=== PATIENT | female | born 1955 | race African-American/Black ===

== ENCOUNTER → 2016-10-14 | Day surgery (SDC) | payer MEDICAID ==
[~2016-10-14] VITALS: Ht 160 cm; Wt 51.7 kg
[~2016-10-14] MED LIST: ACET1TAB14 PO; BALANCED SALT IRRIG SOLN 15ML ONE; BUPIVACAINE HCL/PF 0.75% (7.5MG/ML) 10ML ONE; CIPROFLOXACIN 0.3% OPHTH SOLN 2.5ML ONE; DEXAMETHASONE 4MG/ML 1ML VIAL ONE; DRISDOL PO; FENTANYL CITRATE/PF 50MCG/ML 2ML VIAL ONE; FERR-63 PO; GENTAMICIN SULF 40MG/ML 2ML VIAL ONE; LACTATED RINGERS 1,000 ML IV SCH; LIDOCAINE HCL 2%/EPINEPHRINE 1:100,000 20 ML VIAL INFIL ONE; LISI-196 PO; MIDAZOLAM HCL 2 MG/2 ML VIAL ONE; NEO/POLYMYX B SULF/DEXAMETH OPHTH OINT 3.5GM ONE; ONDANSETRON HCL 4MG/2ML VIAL IV PRN; PREDNISOLONE ACETATE 1% OPHTH DROPS 1ML ONE; PROPOFOL 200MG/20ML VIAL IV ONE; SULF-165 PO; TETRACAINE 0.5% OPHTH DROPS 4ML ONE; TRIAMCINOLONE ACETONIDE 40MG/ML 1ML VIAL ONE
== END | disposition home or self-care (01) ==
LOC: OR 05:39
PROVIDERS: ATTEND Ophthalmology
DX: H11.002 Unspecified pterygium of left eye (principal); I10 Essential (primary) hypertension; G43.909 Migraine, unspecified, not intractable, without status migrainosus; F32.9 Major depressive disorder, single episode, unspecified
CPT/HCPCS: 65426; J2250; J3010; J3301; J3490; J7120; J1100; J1580; J2704

== ENCOUNTER 2017-02-22 16:42 | Inpatient (IN) | payer MEDICAID, OTHER ==
[~2017-02-22] VITALS: Ht 160 cm; Wt 52.2 kg
[~2017-02-22 16:42] MED LIST changes: -BALANCED SALT IRRIG SOLN 15ML ONE; -BUPIVACAINE HCL/PF 0.75% (7.5MG/ML) 10ML ONE; -CIPROFLOXACIN 0.3% OPHTH SOLN 2.5ML ONE; -DEXAMETHASONE 4MG/ML 1ML VIAL ONE; -FENTANYL CITRATE/PF 50MCG/ML 2ML VIAL ONE; -GENTAMICIN SULF 40MG/ML 2ML VIAL ONE; -LACTATED RINGERS 1,000 ML IV SCH; -LIDOCAINE HCL 2%/EPINEPHRINE 1:100,000 20 ML VIAL INFIL ONE; -MIDAZOLAM HCL 2 MG/2 ML VIAL ONE; -NEO/POLYMYX B SULF/DEXAMETH OPHTH OINT 3.5GM ONE; -ONDANSETRON HCL 4MG/2ML VIAL IV PRN; -PREDNISOLONE ACETATE 1% OPHTH DROPS 1ML ONE; -PROPOFOL 200MG/20ML VIAL IV ONE; -TETRACAINE 0.5% OPHTH DROPS 4ML ONE; -TRIAMCINOLONE ACETONIDE 40MG/ML 1ML VIAL ONE
[2017-02-22] MEDS ORDERED: SODIUM CHLORIDE 0.9% 250 ML IV ONE (18:06)
[2017-02-22 18:36] LABS: BASOPHILS % 0.5 % (0.0-2.0); EOSINOPHILS % 0.9 % (0.0-5.0); HEMATOCRIT. 37.8 % (36.0-48.0); HEMOGLOBIN. 12.2 g/dL (12.0-16.0); LYMPHOCYTES % 29.3 % (20.0-50.0); MEAN CORPUSCULAR HEMOGLOBIN 27.9 pg (28.0-32.0); MEAN CORPUSCULAR VOLUME 86.5 fL (81.0-99.0); MEAN PLATELET VOLUME 8.1 fl (7.4-10.4); MONOCYTES % 9.1 % (2.0-8.0); NEUTROPHILS % 60.2 % (40.0-76.0); PLATELET 300 x1000/uL (130-400); RED BLOOD CELL COUNT 4.37 mill/uL (4.2-5.4); RED CELL DISTRIBUTION WIDTH 14.5 % (11.6-14.6)
[2017-02-22 18:44] LABS: CARBON DIOXIDE 28 mEq/L (21-32); CHLORIDE 103 mEq/L (98-107); ETHANOL BLOOD < 10 mg/dL
[2017-02-22 18:49] LABS: CREATINE KINASE 137 IU/L (26-192); TROPONIN I < 0.02 ng/mL (0.00-0.04)
[2017-02-22 18:50] LABS: INR 1.1
[2017-02-22 19:00] LABS: AMMONIA < 10 uMol/L (<32)
[2017-02-22 19:21] LABS: GLUCOSE URINE NEGATIVE (NEGATIVE); KETONES URINE NEGATIVE (NEGATIVE); LEUKOCYTE ESTERASE URINE 1+ (NEGATIVE); NITRITE URINE NEGATIVE (NEGATIVE); OCCULT BLOOD URINE NEGATIVE (NEGATIVE); PROTEIN URINE NEGATIVE (NEGATIVE); SPECIFIC GRAVITY URINE 1.005 (1.005-1.030); UROBILINOGEN URINE 0.2 E.U./dL (0.2-1.0)
[2017-02-22 19:22] LABS: CLARITY URINE SLIGHTLY HAZY (CLEAR); COLOR URINE YELLOW (YELLOW)
[2017-02-22 19:35] LABS: *AMPHETAMINES SCREEN URINE NEGATIVE (NEGATIVE); *BARBITURATES SCREEN URINE NEGATIVE (NEGATIVE); *BENZODIAZEPINES SCREEN URINE NEGATIVE (NEGATIVE); *COCAINE SCREEN URINE NEGATIVE (NEGATIVE); CANNABINOID URINE SCREEN NEGATIVE (NEGATIVE); METHADONE URINE SCREEN NEGATIVE (NEGATIVE); OPIATES URINE SCREEN PRESUMTIVE POSITIVE (NEGATIVE); PHENCYCLIDINE URINE SCREEN NEGATIVE (NEGATIVE)
[2017-02-22] MEDS ORDERED: CEFTRIAXONE 1 G PREMIX 50 ML IV ONE (19:45)
[2017-02-22 22:30] VITALS: BP 149/87
[2017-02-22] MEDS ORDERED: GABA-531 PO (22:54)
[2017-02-22] MEDS ORDERED: ESTR1TAB66 PO (22:54)
[2017-02-22] MEDS ORDERED: ROCEPHIN (CEFTRIAXONE) XX SCH (23:15)
[2017-02-22] MEDS ORDERED: CLONIDINE 0.1MG TABLET PO PRN (23:15)
[2017-02-22] MEDS ORDERED: ACETAMINOPHEN WITH CODEINE 300/60MG TABLET PO SCH (23:15)
[2017-02-22] MEDS ORDERED: ACETAMINOPHEN 325MG TABLET PO PRN (23:15)
[2017-02-22] MEDS ORDERED: IPRATROPIUM/ALBUTEROL 0.5-3(2.5)MG/3ML NEB INH PRN (23:15)
[2017-02-22] MEDS ORDERED: ONDANSETRON HCL 4MG/2ML VIAL IV PRN (23:15)
[2017-02-22] MEDS ORDERED: ACETAMINOPHEN WITH CODEINE 300/60MG TABLET PO PRN (23:47)
[2017-02-23] VITALS: BP_SYST 104; BP_SYST 105; BP_SYST 133; BP_DIAS 109; BP_DIAS 63; BP_DIAS 70
[2017-02-23] MEDS: GABAPENTIN 300MG CAPSULE PO SCH ×4 (00:05→17:18)
[2017-02-23 04:00] VITALS: BP 109/64
[2017-02-23 07:19] LABS: BASOPHILS % 0.9 % (0.0-2.0); EOSINOPHILS % 2.4 % (0.0-5.0); HEMATOCRIT. 33.1 % (36.0-48.0); HEMOGLOBIN. 10.7 g/dL (12.0-16.0); LYMPHOCYTES % 32.9 % (20.0-50.0); MEAN CORPUSCULAR HEMOGLOBIN 27.8 pg (28.0-32.0); MEAN CORPUSCULAR VOLUME 85.7 fL (81.0-99.0); MEAN PLATELET VOLUME 8.4 fl (7.4-10.4); MONOCYTES % 11.3 % (2.0-8.0); NEUTROPHILS % 52.5 % (40.0-76.0); PLATELET 254 x1000/uL (130-400); RED BLOOD CELL COUNT 3.86 mill/uL (4.2-5.4); RED CELL DISTRIBUTION WIDTH 14.4 % (11.6-14.6)
[2017-02-23 07:48] LABS: CARBON DIOXIDE 31 mEq/L (21-32); CHLORIDE 106 mEq/L (98-107); CREATINE KINASE 111 IU/L (26-192); CREATINE KINASE MB FRACTION 0.7 ng/mL (0.5-3.6); HDL CHOLESTEROL 57 mg/dL (40-59); LDL CHOLESTEROL 92 mg/dL (5-100); TROPONIN I < 0.02 ng/mL (0.00-0.04)
[2017-02-23 08:00] VITALS: BP 113/71
[2017-02-23] MEDS ORDERED: FERROUS SULFATE 325MG TABLET PO SCH (09:00)
[2017-02-23] MEDS: HYDROCHLOROTHIAZIDE 12.5MG CAPSULE PO SCH (09:00)
[2017-02-23] MEDS ORDERED: [UNRECOGNIZED DRUG - OTHER] PO SCH (09:00)
[2017-02-23] MEDS: ENOXAPARIN 40MG/0.4ML SYR SUBCUT SCH (09:58)
[2017-02-23] MEDS: LISINOPRIL 20MG TABLET PO SCH (09:59)
[2017-02-23] MEDS ORDERED: REGADENOSON 0.4 MG/5 ML IV NR (13:00)
[2017-02-23 16:07] VITALS: BP 120/75
[2017-02-23 16:36] LABS: CREATINE KINASE 101 IU/L (26-192); CREATINE KINASE MB FRACTION 0.7 ng/mL (0.5-3.6); TROPONIN I < 0.02 ng/mL (0.00-0.04)
[2017-02-23 20:00] VITALS: BP_SYST 104; BP_SYST 141; BP_SYST 143; BP_DIAS 74; BP_DIAS 82; BP_DIAS 83
[2017-02-23] MEDS ORDERED: CEFTRIAXONE 1 G PREMIX 50 ML IV SCH (22:00)
[2017-02-24] VITALS: BP 96/54
[2017-02-24 04:00] VITALS: BP 110/68
[2017-02-24 06:48] LABS: HEMATOCRIT. 33.1 % (36.0-48.0); HEMOGLOBIN. 10.7 g/dL (12.0-16.0); MEAN CORPUSCULAR HEMOGLOBIN 27.8 pg (28.0-32.0); MEAN CORPUSCULAR VOLUME 86.2 fL (81.0-99.0); MEAN PLATELET VOLUME 8.5 fl (7.4-10.4); PLATELET 245 x1000/uL (130-400); RED BLOOD CELL COUNT 3.84 mill/uL (4.2-5.4); RED CELL DISTRIBUTION WIDTH 14.5 % (11.6-14.6)
[2017-02-24 07:08] LABS: CARBON DIOXIDE 28 mEq/L (21-32); CHLORIDE 107 mEq/L (98-107); CREATINE KINASE 95 IU/L (26-192); LDL CHOLESTEROL 82 mg/dL (5-100)
[2017-02-24 07:14] LABS: HDL CHOLESTEROL 54 mg/dL (40-59); TROPONIN I < 0.02 ng/mL (0.00-0.04)
[2017-02-24] MEDS: HYDROCHLOROTHIAZIDE 12.5MG CAPSULE PO SCH (08:51)
[2017-02-24] MEDS: GABAPENTIN 300MG CAPSULE PO SCH ×2 (08:53→13:00)
[2017-02-24] MEDS: LISINOPRIL 20MG TABLET PO SCH (08:53)
[2017-02-24] MEDS: ENOXAPARIN 40MG/0.4ML SYR SUBCUT SCH (08:53)
[2017-02-24] MEDS ORDERED: REGADENOSON 0.4 MG/5 ML IV SCH (10:15)
[2017-02-24] MEDS ORDERED: REGADENOSON 0.4 MG/5 ML IV ONE (12:10)
[2017-02-24 14:30] VITALS: BP_SYST 119; BP_SYST 135; BP_SYST 146; BP_DIAS 79; BP_DIAS 87; BP_DIAS 88
[2017-02-24 15:12] LABS: PLATELET ESTIMATE NORMAL
[2017-02-24 16:30] VITALS: BP 133/82
[2017-02-24 16:36] VITALS: BP 133/82
[2017-02-24 19:52] LABS: *AMPHETAMINES SCREEN URINE NEGATIVE (NEGATIVE); *BARBITURATES SCREEN URINE NEGATIVE (NEGATIVE); *BENZODIAZEPINES SCREEN URINE NEGATIVE (NEGATIVE); *COCAINE SCREEN URINE NEGATIVE (NEGATIVE); CANNABINOID URINE SCREEN NEGATIVE (NEGATIVE); METHADONE URINE SCREEN NEGATIVE (NEGATIVE); OPIATES URINE SCREEN NEGATIVE (NEGATIVE); PHENCYCLIDINE URINE SCREEN NEGATIVE (NEGATIVE)
== END 2017-02-24 17:08 | disposition home or self-care (01) | DRG 204 ==
LOC: EDBEDREQ 19:31 → ER 19:57 → 7WST 19:58 → ENRESERV 20:18
PROVIDERS: ADMIT Internal Medicine; ATTEND Internal Medicine
DX: I95.1 Orthostatic hypotension (principal); G90.8 Other disorders of autonomic nervous system; I11.9 Hypertensive heart disease without heart failure; F45.8 Other somatoform disorders; N39.0 Urinary tract infection, site not specified; D64.9 Anemia, unspecified; G43.909 Migraine, unspecified, not intractable, without status migrainosus; Z79.899 Other long term (current) drug therapy; Z82.49 Family history of ischemic heart disease and other diseases of the circulatory system
CPT/HCPCS: 36415; 70450; 70544; 70553; 71010; 78452; 80048; 80053; 80061; 80305; 81001; 82140; 82270; 82550; 82553; 83605; 83735; 83880; 84443; 84484; 85025; 85610; 87015; 87040; 87045; 87077; 87086; 87186; 87427; 87449; 87493; 93005; 93017; 93306; 93880; 93970; 97162; 99285; A9500; G0482; J0696; J1650; J2785; J7050

== ENCOUNTER 2018-03-25 21:59 | Inpatient (IN) | payer MEDICAID ==
[~2018-03-25] VITALS: Ht 160 cm; Wt 54.4 kg
[~2018-03-25 21:59] MED LIST changes: +ESTR1TAB66 PO; +GABA-531 PO
[2018-03-25 23:47] LABS: BASOPHILS % 0.6 % (0.0-2.0); EOSINOPHILS % 2.6 % (0.0-5.0); HEMOGLOBIN. 11.3 g/dL (12.0-16.0); LYMPHOCYTES % 27.9 % (20.0-50.0); MEAN CORPUSCULAR HEMOGLOBIN 28.2 pg (28.0-32.0); MEAN PLATELET VOLUME 8.3 fl (7.4-10.4); MONOCYTES % 9.9 % (2.0-8.0); PLATELET 289 x1000/uL (130-400); RED BLOOD CELL COUNT 4.02 mill/uL (4.2-5.4); RED CELL DISTRIBUTION WIDTH 14.8 % (11.6-14.6)
[2018-03-25 23:48] LABS: CHLORIDE 101 mEq/L (98-107)
[2018-03-26] MEDS ORDERED: KETOROLAC 30MG/ML VIAL IV ONE (00:45)
[2018-03-26 06:00] VITALS: BP 142/99
[2018-03-26 07:57] VITALS: BP 145/90
[2018-03-26 08:00] VITALS: BP 145/90
[2018-03-26] MEDS ORDERED: ACETAMINOPHEN 325MG TABLET PO PRN (08:15)
[2018-03-26] MEDS ORDERED: ONDANSETRON HCL 4MG/2ML INJ IV PRN (08:15)
[2018-03-26] MEDS ORDERED: HYDROCODONE/ACETAMINOPHEN 5/325MG TABLET PO PRN (08:15)
[2018-03-26] MEDS ORDERED: HYDROCODONE/ACETAMINOPHEN 10/325MG TABLET PO PRN (08:15)
[2018-03-26] MEDS ORDERED: ACETAMINOPHEN 650MG/20.3ML UDC GT PRN (08:15)
[2018-03-26] MEDS ORDERED: LORAZEPAM 2MG/ML CPJ IV PRN (08:15)
[2018-03-26] MEDS ORDERED: MAGNESIUM/ALUMINUM HYDROXIDE/SIMETHICONE 30ML UDC PO PRN (08:15)
[2018-03-26] MEDS ORDERED: ACETAMINOPHEN 650MG SUPP PR PRN (08:15)
[2018-03-26 09:54] LABS: AMMONIA 23 uMol/L (<32)
[2018-03-26 10:09] LABS: FOLIC ACID (FOLATE) SERUM 11.3 ng/mL (>5.38)
[2018-03-26 12:00] VITALS: BP 161/99
[2018-03-26] MEDS: LEVETIRACETAM 500MG TABLET PO SCH ×2 (12:12→21:00)
[2018-03-26] MEDS ORDERED: GADOBENATE DIMEGLUMINE 529 MG/ML 10ML IV ONE (15:30)
[2018-03-26 16:00] VITALS: BP 145/88
[2018-03-26 16:32] LABS: BASOPHILS % 0.5 % (0.0-2.0); EOSINOPHILS % 2.7 % (0.0-5.0); HEMATOCRIT. 35.5 % (36.0-48.0); HEMOGLOBIN. 11.5 g/dL (12.0-16.0); LYMPHOCYTES % 26.1 % (20.0-50.0); MEAN CORPUSCULAR VOLUME 86.7 fL (81.0-99.0); MEAN PLATELET VOLUME 8.7 fl (7.4-10.4); MONOCYTES % 9.1 % (2.0-8.0); NEUTROPHILS % 61.6 % (40.0-76.0); PLATELET 284 x1000/uL (130-400); RED CELL DISTRIBUTION WIDTH 15.2 % (11.6-14.6)
[2018-03-26 16:43] LABS: CHLORIDE 101 mEq/L (98-107)
[2018-03-26 16:46] LABS: ETHANOL BLOOD < 10 mg/dL
[2018-03-26 16:51] LABS: CREATINE KINASE 158 IU/L (26-192)
[2018-03-26 16:53] LABS: CREATINE KINASE MB FRACTION 1.3 ng/mL (0.5-3.6)
[2018-03-26] MEDS: DEXAMETHASONE 4MG/ML 1ML VIAL IV SCH (18:30)
[2018-03-26 20:00] VITALS: BP 129/79
[2018-03-26] MEDS ORDERED: AMLODIPINE 5MG TABLET PO SCH (21:00)
[2018-03-26 22:00] LABS: CLARITY URINE CLOUDY (CLEAR); COLOR URINE YELLOW (YELLOW); KETONES URINE NEGATIVE (NEGATIVE); LEUKOCYTE ESTERASE URINE 2+ (NEGATIVE); NITRITE URINE NEGATIVE (NEGATIVE); OCCULT BLOOD URINE NEGATIVE (NEGATIVE); PH URINE 6.5 (4.5-8.0); PROTEIN URINE NEGATIVE (NEGATIVE); SPECIFIC GRAVITY URINE 1.019 (1.005-1.030)
[2018-03-26 22:13] LABS: *BARBITURATES SCREEN URINE NEGATIVE (NEGATIVE)
[2018-03-26 22:14] LABS: *AMPHETAMINES SCREEN URINE NEGATIVE (NEGATIVE); *BENZODIAZEPINES SCREEN URINE NEGATIVE (NEGATIVE); *COCAINE SCREEN URINE NEGATIVE (NEGATIVE); CANNABINOID URINE SCREEN NEGATIVE (NEGATIVE); METHADONE URINE SCREEN NEGATIVE (NEGATIVE); OPIATES URINE SCREEN NEGATIVE (NEGATIVE); PHENCYCLIDINE URINE SCREEN NEGATIVE (NEGATIVE)
[2018-03-27] VITALS: BP 102/61
[2018-03-27] MEDS: DEXAMETHASONE 4MG/ML 1ML VIAL IV SCH ×2 (00:11→06:24)
[2018-03-27 01:00] LABS: CREATINE KINASE 148 IU/L (26-192)
[2018-03-27 01:01] LABS: CREATINE KINASE MB FRACTION 1.5 ng/mL (0.5-3.6)
[2018-03-27 04:00] VITALS: BP 137/85
[2018-03-27 07:43] LABS: BASOPHILS % 0.1 % (0.0-2.0); EOSINOPHILS % 0.1 % (0.0-5.0); HEMATOCRIT. 34.6 % (36.0-48.0); HEMOGLOBIN. 11.3 g/dL (12.0-16.0); LYMPHOCYTES % 10.7 % (20.0-50.0); MEAN CORPUSCULAR HEMOGLOBIN 28.1 pg (28.0-32.0); MEAN CORPUSCULAR VOLUME 85.6 fL (81.0-99.0); MEAN PLATELET VOLUME 8.6 fl (7.4-10.4); MONOCYTES % 3.5 % (2.0-8.0); NEUTROPHILS % 85.6 % (40.0-76.0); PLATELET 304 x1000/uL (130-400); RED BLOOD CELL COUNT 4.04 mill/uL (4.2-5.4); RED CELL DISTRIBUTION WIDTH 14.8 % (11.6-14.6)
[2018-03-27 07:48] LABS: CHLORIDE 103 mEq/L (98-107)
[2018-03-27 07:53] LABS: PHOSPHORUS 3.6 mg/dL (2.5-4.9)
[2018-03-27 07:55] LABS: LDL CHOLESTEROL 142 mg/dL (5-100)
[2018-03-27 07:56] LABS: HDL CHOLESTEROL 80 mg/dL (40-59)
[2018-03-27 08:01] LABS: T4 FREE 0.75 ng/dL (0.76-1.46)
== END 2018-03-27 08:30 | disposition left against medical advice (07) | DRG 53 ==
LOC: ER 21:59 → 5WST 03-26 00:44 → EDBEDREQ 03-26 00:45 → EDBEDREQTM 03-26 00:45 → ENRESERV 03-26 04:23
PROVIDERS: ADMIT Internal Medicine; ATTEND Internal Medicine
DX: G40.909 Epilepsy, unspecified, not intractable, without status epilepticus (principal); G95.89 Other specified diseases of spinal cord; D64.9 Anemia, unspecified; E78.5 Hyperlipidemia, unspecified; I10 Essential (primary) hypertension; Z82.49 Family history of ischemic heart disease and other diseases of the circulatory system; E04.8 Other specified nontoxic goiter; M54.10 Radiculopathy, site unspecified
CPT/HCPCS: 36415; 70450; 70544; 70553; 71045; 72141; 80048; 80053; 80061; 80305; 81003; 82140; 82550; 82553; 82607; 82746; 82962; 83036; 83690; 83735; 84100; 84439; 84443; 84481; 84484; 85025; 85610; 85651; 87040; 87077; 87086; 87186; 92610; 93005; 93306; 93880; 96374; 99285; A9577; G0482; J1100; J1885

== ENCOUNTER 2018-12-23 10:16 | Emergency (ER) | payer MEDICAID ==
[~2018-12-23] VITALS: Ht 165.1 cm; Wt 79.0 kg
[2018-12-23] MEDS ORDERED: SODIUM CHLORIDE 0.9% 1,000 ML IV ONE (10:56)
[2018-12-23] MEDS ORDERED: KETOROLAC 30MG/ML VIAL IV STA (10:56)
[2018-12-23] MEDS ORDERED: ONDANSETRON HCL 4MG/2ML INJ IV STA (10:56)
[2018-12-23] MEDS ORDERED: CLONIDINE 0.2MG TABLET PO ONE (11:00)
[2018-12-23 11:11] LABS: CLARITY URINE CLEAR (CLEAR); COLOR URINE YELLOW (YELLOW); KETONES URINE NEGATIVE (NEGATIVE); LEUKOCYTE ESTERASE URINE 2+ (NEGATIVE); NITRITE URINE NEGATIVE (NEGATIVE); OCCULT BLOOD URINE NEGATIVE (NEGATIVE); PH URINE 6.5 (4.5-8.0); PROTEIN URINE NEGATIVE (NEGATIVE); SPECIFIC GRAVITY URINE 1.013 (1.005-1.030)
[2018-12-23] MEDS ORDERED: FAMOTIDINE 20MG/2ML VIAL IV ONE (11:30)
[2018-12-23] MEDS ORDERED: ACETAMINOPHEN 325MG TABLET PO ONE (11:30)
[2018-12-23 11:56] LABS: BASOPHILS % 0.6 % (0.0-2.0); EOSINOPHILS % 0.4 % (0.0-5.0); HEMATOCRIT. 37.1 % (36.0-48.0); LYMPHOCYTES % 12.7 % (20.0-50.0); MEAN CORPUSCULAR HEMOGLOBIN 28.1 pg (28.0-32.0); MEAN PLATELET VOLUME 8.8 fl (7.4-10.4); MONOCYTES % 6.4 % (2.0-8.0); NEUTROPHILS % 79.9 % (40.0-76.0); PLATELET 269 x1000/uL (130-400); RED BLOOD CELL COUNT 4.27 mill/uL (4.2-5.4); RED CELL DISTRIBUTION WIDTH 15.5 % (11.6-14.6)
[2018-12-23 12:05] LABS: CHLORIDE 103 mEq/L (98-107)
[2018-12-23] MEDS ORDERED: POTASSIUM CHLORIDE 20MEQ TABLET SR PO ONE (12:45)
[2018-12-23 14:23] VITALS: BP 172/90
== END 2018-12-23 14:20 | disposition home or self-care (01) ==
LOC: ER 10:16
DX: R11.2 Nausea with vomiting, unspecified (principal); E87.6 Hypokalemia; I10 Essential (primary) hypertension; Z88.6 Allergy status to analgesic agent; Z91.048 Other nonmedicinal substance allergy status
CPT/HCPCS: 36415; 76705; 80053; 81003; 83690; 85025; 96361; 96374; 96375; 99284; J1885; J2405; J3490; J7030